=== PATIENT | female | born 1985 | race Two or more races ===

== ENCOUNTER 2024-12-07 23:14 | Emergency (ER) | payer OTHER, SELFPAY ==
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
[2024-12-07 23:19] VITALS: BMI 27.4
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
[2024-12-07 23:47] VITALS: BP 117/74; PULSE 76; RESP 18; TEMP 36.7; O2SAT 97
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
== END 2024-12-08 00:55 | disposition home or self-care (01) ==
PROVIDERS: Emergency Provider Emergency Medicine
DX: S13.4XXA Sprain of ligaments of cervical spine, initial encounter (principal); V89.2XXA Person injured in unspecified motor-vehicle accident, traffic, initial encounter; Y93.89 Activity, other specified; Y92.410 Unspecified street and highway as the place of occurrence of the external cause; Y99.0 Civilian activity done for income or pay
CPT/HCPCS: 72125; 99284